=== PATIENT | female | born 1935 | race Caucasian/White ===

== ENCOUNTER 2017-01-01 21:17 | Emergency (ER) | payer OTHER ==
[~2017-01-01] VITALS: Ht 165.1 cm; Wt 86.4 kg
[~2017-01-01 21:17] MED LIST: ABILIFY5 MG PO; ASPIR-LOW81 MG PO; CIPROFLOXACIN500 M1 PO; HYDROCODON-ACE1 EAC8 PO; LISINOPRIL-HCT1 EACH PO; METRONIDAZOLE500 MG PO; MULTI VITAMIN1 EACH PO; PERCOCET 5/31 TABLET PO; PRILOSEC20 MG PO; SYNTHROID75 MCG PO; TRADJENTA5 MG PO; multivitamin PO
[2017-01-01] MEDS ORDERED: OXYCODONE HCL10 MG PO (22:29)
[2017-01-02 03:24] VITALS: BP 113/64
== END 2017-01-01 22:45 | disposition home or self-care (01) ==
LOC: EME 21:17
DX: S93.601A Unspecified sprain of right foot, initial encounter (principal); W18.2XXD Fall in (into) shower or empty bathtub, subsequent encounter; Z76.0 Encounter for issue of repeat prescription; Z86.718 Personal history of other venous thrombosis and embolism; Z88.8 Allergy status to other drugs, medicaments and biological substances
CPT/HCPCS: 93971; 99281; 99283

== ENCOUNTER 2017-09-03 23:08 | Emergency (ER) | payer OTHER ==
[~2017-09-03] VITALS: Ht 165.1 cm; Wt 81.8 kg
[~2017-09-03 23:08] MED LIST changes: +OXYCODONE HCL10 MG PO
[2017-09-04] MEDS ORDERED: PERCOCET 10/1 TABLET PO (01:03)
[2017-09-04 03:08] VITALS: BP 108/76
== END 2017-09-04 03:08 | disposition home or self-care (01) ==
LOC: EME 23:08
PROC: 2W39X1Z Immobilization of Left Upper Extremity using Splint (ICD-10-PCS; principal; 2017-09-03)
DX: S42.302A Unspecified fracture of shaft of humerus, left arm, initial encounter for closed fracture (principal); W18.30XA Fall on same level, unspecified, initial encounter; Y93.89 Activity, other specified; I10 Essential (primary) hypertension; K21.9 Gastro-esophageal reflux disease without esophagitis; E11.9 Type 2 diabetes mellitus without complications; J44.9 Chronic obstructive pulmonary disease, unspecified; F32.9 Major depressive disorder, single episode, unspecified; Z85.72 Personal history of non-Hodgkin lymphomas; Z90.49 Acquired absence of other specified parts of digestive tract; Z90.710 Acquired absence of both cervix and uterus; Z79.82 Long term (current) use of aspirin
CPT/HCPCS: 70450; 73030; 73060; 99281; 99284; J3010